=== PATIENT | male | born 1955 | race Caucasian/White ===

== ENCOUNTER 2018-11-10 22:16 | Emergency (ER) | payer SELFPAY ==
[~2018-11-10] VITALS: Ht 177.8 cm; Wt 79.4 kg
[2018-11-11] MEDS ORDERED: ULTRAM50 MG PO (00:25)
== END 2018-11-11 00:27 | disposition home or self-care (01) ==
LOC: ED 22:16
DX: M24.811 Other specific joint derangements of right shoulder, not elsewhere classified (principal); F17.200 Nicotine dependence, unspecified, uncomplicated; X50.1XXA Overexertion from prolonged static or awkward postures, initial encounter; Y93.89 Activity, other specified; Y92.89 Other specified places as the place of occurrence of the external cause; Y99.9 Unspecified external cause status

== ENCOUNTER → 2022-01-31 | Day surgery (SDC) | payer MEDICARE ==
[~2022-01-31] VITALS: Ht 175.2 cm; Wt 77.6 kg
[~2022-01-31] MED LIST: CARAFATE1 G1 PO; PROTONIX40 MG PO; ULTRAM50 MG PO
[2022-01-31 08:45] VITALS: BP 112/84
[2022-01-31 09:25] VITALS: BP 105/63
[2022-01-31 09:40] VITALS: BP 113/73
== END | disposition home or self-care (01) ==
LOC: SDC 01-28 10:15
PROVIDERS: ATTEND Surgery
DX: Z12.11 Encounter for screening for malignant neoplasm of colon (principal); K29.50 Unspecified chronic gastritis without bleeding; K57.30 Diverticulosis of large intestine without perforation or abscess without bleeding; I10 Essential (primary) hypertension; K21.9 Gastro-esophageal reflux disease without esophagitis; F17.210 Nicotine dependence, cigarettes, uncomplicated; Z79.899 Other long term (current) drug therapy

== ENCOUNTER 2024-03-20 13:00 | Emergency (ER) | payer OTHER ==
[~2024-03-20] VITALS: Ht 177.8 cm; Wt 84.4 kg
[2024-03-20] MEDS ORDERED: FAMOTIDINE 50 ML IV ONE (13:25)
[2024-03-20] MEDS ORDERED: Ondansetron Hydrochloride 4 MG/2 ML VIAL IV ONE (13:25)
[2024-03-20] MEDS ORDERED: SODIUM CHLORIDE 0.9% 1,000 ML IV ONE (13:25)
[2024-03-20 13:40] LABS: HEMATOCRIT 44.8 % (42.0-52.0); MEAN CELL VOLUME 93.3 fl (80.0-94.0); MEAN CORPUSCULAR HGB CONC 33.3 g/dl (33.0-37.0); MEAN PLATELET VOLUME 9.3 fl (9.6-12.3); PLATELET COUNT AUTOMATED 202 10*3/uL (130-400); RED CELL DISTRI WIDTH 12.3 % (0-14.5); WHITE BLOOD COUNT 11.9 10*3/uL (4.8-10.8)
[2024-03-20 13:47] LABS: MANUAL DIFF REFLEX YES
[2024-03-20 13:55] LABS: BUN 16 mg/dl (9-23); CHLORIDE 104 mmol/L (98-107); LIPASE 38 U/L (12-53); POTASSIUM 3.7 mmol/L (3.4-5.1)
[2024-03-20 14:07] LABS: PLATELET SUFFICIENCY NORMAL (NORMAL); TOTAL CELLS COUNTED 100 #CELLS
[2024-03-20 14:08] LABS: VACUOLATION OF NEUTROPHILS SLIGHT
[2024-03-20] MEDS ORDERED: Ondansetron4 MG PO (14:30)
[2024-03-20] MEDS ORDERED: CIPRO500 MG PO (14:30)
== END 2024-03-20 15:02 | disposition home or self-care (01) ==
LOC: ED 13:00
PROVIDERS: Emergency Medicine
DX: R11.2 Nausea with vomiting, unspecified (principal); R19.7 Diarrhea, unspecified; I10 Essential (primary) hypertension; K21.9 Gastro-esophageal reflux disease without esophagitis; Z98.890 Other specified postprocedural states